=== PATIENT | female | born 2000 | race African-American/Black ===

== ENCOUNTER 2022-04-05 14:56 | Emergency (ER) | payer OTHER, SELFPAY ==
[2022-04-05 15:01] VITALS: BP 134/81; PULSE 124; RESP 20; TEMP 36.7; O2SAT 99
[2022-04-05 15:16] LABS: Basophils Percent Auto 0.1 % (0.2-1.2); Eosinophils Percent Auto 0.1 % (0-4.4); Hematocrit 42.2 % (37.0-47.0); Hemoglobin 13.4 g/dL (12.0-15.0); Immature Granulocyte Absolute 0.02 K/mm3 (0.00-0.031); Immature Granulocyte Percent A 0.2 % (0-0.5); Lymphocytes Absolute Auto 1.09 K/mm3 (0.9-3.2); Lymphocytes Percent Auto 13.5 % (18.3-44.2); Mean Corpuscular HGB Conc 31.8 g/dl (32-36); Mean Corpuscular Hemoglobin 27.5 pg (26-34); Mean Corpuscular Volume 86.5 fl (80-100); Mean Platelet Volume 10.7 fl (7.4-10.4); Monocytes Absolute Auto 0.4 K/mm3 (0.1-0.6); Monocytes Percent Auto 5.1 % (2.6-8.5); Neutrophils Absolute Auto 6.6 K/mm3 (1.3-6.7); Platelet Count Result 272 k/mm3 (150-375); Red Blood Count 4.88 M/mm3 (4.2-5.4); Red Cell Distribution Width 12.8 % (11.5-14.5); White Blood Count 8.1 K/mm3 (4.5-10.0)
[2022-04-05 15:26] LABS: Alanine Aminotransferase 13 U/L (6-35); Albumin Level 4.5 g/dL (3.5-5.1); Alkaline Phosphatase 83 U/L (38-126); Anion Gap 9 mmol/L (8-16); Aspartate Amino Transferase 18 U/L (14-36); Bilirubin,Total 1.3 mg/dL (0.2-1.3); Blood Urea Nitrogen 11 mg/dL (7-17); Calcium 8.7 mg/dL (8.4-10.2); Carbon Dioxide 25 mmol/L (22-30); Chloride 104 mmol/L (98-107); Estimated CRCL calculation 184 ml/min; Estimated Glomerular Filt Rate > 60; Glucose 101 mg/dL (65-110); Lipase 42 U/L (23-300); Potassium 3.8 mmol/L (3.4-5.0); Sodium 138 mmol/L (137-145)
[2022-04-05 15:33] VITALS: O2SAT 97
[2022-04-05 15:35] VITALS: BP 126/95; O2SAT 96
[2022-04-05 15:45] VITALS: O2SAT 97
--- NOTE | 2022-04-05 15:49 | ED.GENADULT ---
HPI - General Adult General Chief complaint: Nausea/Vomiting/Diarrhea Stated complaint: DIZZINESS,N/V/D Time Seen by Provider: 04/05/22 15:29 History of Present Illness HPI narrative: 21-year-old female presenting to the emergency department for evaluation of 2 days of nausea vomiting diarrhea and associated headache. Patient reports she does have borderline diabetes and she does have history of hypertension Related Data Allergies Allergy/AdvReac Type Severity Reaction Status Date / Time latex Allergy Redness of Verified 07/22/19 09:12 Skin Review of Systems Review of Systems: CONSTITUTIONAL: Denies fever, chills, or sweats. EYES: Denies visual changes, redness, or discharge. ENT: Denies rhinorrhea, congestion, sore throat, or otalgia. CARDIOVASCULAR: Denies chest pain, palpitations, or edema. RESPIRATORY: Denies cough or dyspnea. GASTROINTESTINAL: See HPI GENITOURINARY: See HPI SKIN: Denies rash or itching. MUSCULOSKELETAL: Denies back pain, joint pain, or myalgia. NEUROLOGIC: Denies headache, numbness, or weakness. [facility] Past Medical History Medical History (Updated 04/06/22 @ 13:43 by Raad Lamar MD) Obesity Social History Social History Gender identity (if verbalized by the patient): Female Exam Narrative: APPEARANCE: Well appearing, no pain, no distress, well-nourished. HEAD: normocephalic, atraumatic. EYES: PERRLA/EOMI, conjunctivae clear. NOSE: Normal no drainage NECK: Supple. No adenopathy, no masses. RESPIRATORY: Airway patent, respirations nonlabored. Clear to auscultation bilaterally, no rales, rhonchi, wheezing. CARDIOVASCULAR: Regular rate and rhythm without murmurs rubs or gallops. ABDOMINAL: Soft, nontender, nondistended, normal bowel sounds MUSCULOSKELETAL: Moves all extremities. Strength/ROM intact, No edema, No calf tenderness. NEURO: Alert. Cranial nerves II through XII intact. SKIN: Warm, dry. Normal Color Course Vital Signs Vital signs: Vital Signs Temperature 98.0 F 04/05/22 15:01 Pulse Rate 124 H 04/05/22 15:01 Respiratory Rate 20 04/05/22 15:01 Blood Pressure 134/81 04/05/22 15:01 Pulse Oximetry 99 04/05/22 15:01 Oxygen Delivery Room Air 04/05/22 15:01 Temperature 98.0 F 04/05/22 15:01 Pulse Rate 106 H 04/05/22 18:51 Respiratory Rate 20 04/05/22 18:51 Blood Pressure 130/90 04/05/22 18:51 Pulse Oximetry 97 04/05/22 18:51 Oxygen Delivery Room Air 04/05/22 15:01 Medical Decision Making Vital Signs Vital Signs: Vital Signs Temperature 98.0 F 04/05/22 15:01 Pulse Rate 124 H 04/05/22 15:01 Respiratory Rate 20 04/05/22 15:01 Blood Pressure 134/81 04/05/22 15:01 Pulse Oximetry 99 04/05/22 15:01 Oxygen Delivery Room Air 04/05/22 15:01 Temperature 98.0 F 04/05/22 15:01 Pulse Rate 106 H 04/05/22 18:51 Respiratory Rate 20 04/05/22 18:51 Blood Pressure 130/90 04/05/22 18:51 Pulse Oximetry 97 04/05/22 18:51 Oxygen Delivery Room Air 04/05/22 15:01 Lab Data Lab results reviewed: Yes I reviewed the patient's lab results. Result diagrams: 04/05/22 15:07 04/05/22 15:07 Labs: Lab Results 04/05/22 04/05/22 04/05/22 Range/Units 15:07 15:07 17:14 WBC 8.1 (4.5-10.0) K/mm3 RBC 4.88 (4.2-5.4) M/mm3 Hgb 13.4 (12.0-15.0) g/dL Hct 42.2 (37.0-47.0) % MCV 86.5 (80-100) fl MCH 27.5 (26-34) pg MCHC 31.8 L (32-36) g/dl RDW 12.8 (11.5-14.5) % Plt Count 272 (150-375) k/mm3 MPV 10.7 H (7.4-10.4) fl Immature Gran % (Auto) 0.2 (0-0.5) % Neut % (Auto) 81.0 H (45.5-73.1) % Lymph % (Auto) 13.5 L (18.3-44.2) % [place] % (Auto) 5.1 (2.6-8.5) % Eos % (Auto) 0.1 (0-4.4) % Baso % (Auto) 0.1 L (0.2-1.2) % Lymph # (Auto) 1.09 (0.9-3.2) K/mm3 [place] # (Auto) 0.4 (0.1-0.6) K/mm3 Eos # (Auto) 0.0 (0-0.3) K/mm3 Baso # (Auto)
[2022-04-05 16:15] VITALS: O2SAT 96
[2022-04-05] MEDS: SODIUM CHLORIDE 0.9% IV 1,000 ML 999 ML IV CONT (16:17)
[2022-04-05] MEDS: ONDANSETRON INJ 4 MG/2 ML VIAL IV PUSH (16:18)
[2022-04-05 17:31] LABS: Appearance Urine Cloudy (Clear); Bilirubin Urine 1+ (Negative); Blood Urine Negative (Negative); Color Urine Yellow (Yellow); Glucose Urine UA Negative (Negative); Ketones Urine Trace mg/dL (Negative); Leukocyte Esterase Ur Negative LEU/UL (Negative); Nitrate Urine Negative (Negative); Protein Urine 1+ mg/dL (Negative); Specific Grav Ur >= 1.030 (1.001-1.035)
[2022-04-05 17:36] LABS: Amorphous Sediment Urine Few; Bacteria Urine Trace /hpf; Mucus Urine Heavy /lpf; RBC Urine 51-75 /hpf (0-2); Squamous Epithelial Cell Urine Many /hpf (Few); WBC Urine 16-20 /hpf
[2022-04-05 17:39] LABS: Add Urine Microscopic? YES
[2022-04-05 18:51] VITALS: BP 130/90; PULSE 106; RESP 20; O2SAT 97
== END 2022-04-05 18:55 | disposition home or self-care (01) ==
PROVIDERS: Emergency Provider Emergency Medicine
DX: N39.0 Urinary tract infection, site not specified (principal); R11.2 Nausea with vomiting, unspecified; R73.03 Prediabetes; I10 Essential (primary) hypertension; E66.9 Obesity, unspecified; Z68.43 Body mass index [BMI] 50.0-59.9, adult
CPT/HCPCS: 36415; 80053; 81001; 81025; 83690; 85025; 87086; 87088; 96361; 96365; 96367; 96375; 99284; J0131; J0696; J2405; J7030